=== PATIENT | female | born 1990 | race Caucasian/White ===

== ENCOUNTER 2024-02-06 14:32 | Outpatient (CLI) | payer BC, SELFPAY ==
[2024-02-06 15:23] LABS: Basophils Absolute Auto 0.1 K/mm3 (0.0-0.1); Basophils Percent Auto 0.6 % (0.2-1.2); Eosinophils Absolute Auto 0.1 K/mm3 (0-0.3); Eosinophils Percent Auto 0.8 % (0-4.4); Hematocrit 40.5 % (37.0-47.0); Immature Granulocyte Absolute 0.04 K/mm3 (0.00-0.031); Immature Granulocyte Percent A 0.4 % (0-0.5); Lymphocytes Absolute Auto 2.05 K/mm3 (0.9-3.2); Lymphocytes Percent Auto 21.7 % (18.3-44.2); Mean Corpuscular HGB Conc 32.1 g/dl (32-36); Mean Corpuscular Hemoglobin 28.2 pg (26-34); Mean Corpuscular Volume 87.9 fl (80-100); Mean Platelet Volume 9.7 fl (7.4-10.4); Monocytes Absolute Auto 0.7 K/mm3 (0.1-0.6); Monocytes Percent Auto 7.1 % (2.6-8.5); Neutrophils Absolute Auto 6.5 K/mm3 (1.3-6.7); Neutrophils Percent Auto 69.4 % (45.5-73.1); Platelet Count Result 283 k/mm3 (150-375); Red Blood Count 4.61 M/mm3 (4.2-5.4); Red Cell Distribution Width 12.8 % (11.5-14.5); White Blood Count 9.4 K/mm3 (4.5-10.0)
== END 2024-02-06 14:33 | disposition home or self-care (01) ==
PROVIDERS: PCP Family Medicine; Visit Provider Obstetrics & Gynecology
DX: N94.10 Unspecified dyspareunia (principal)
CPT/HCPCS: 36415; 85025; 86850; 86900; 86901

== ENCOUNTER 2024-02-10 00:24 | Day surgery (SDC) | payer BC, SELFPAY ==
[2024-02-03 15:36] VITALS: BMI 25.0
--- NOTE | 2024-02-03 15:43 | PC.NURSE ---
Report to the Outpatient Waiting Room, entrance under the green pavilion located off [facility], at time _0930_ on date _[id number]_. Planned Procedure Time: _1130_.? Time changes happen often and if your time is changed the preop area will call you the afternoon before. - You and your visitor will be asked to self-screen and do not enter if you have any COVID symptoms. Please call surgeon if you need to reschedule. - A mask is optional within the hospital at this time. Patients may have clear liquids (water, carbonated beverages, clear teas, apple juice) until 3 hours prior to surgery with a maximum of 20 ounces. - No food from midnight until time of surgery and no smoking Take only the following medications with a SIP of water on the morning of surgery: ___None DO NOT STOP ANY OF YOUR OTHER PRESCRIPTION MEDICATIONS PRIOR TO SURGERY EXCEPT THE FOLLOWING Medications to discontinue per physician None____ Please no make-up, nail austrian, hairspray, perfume, deodorant, or body powder the day of surgery.? No jewelry (including any body piercings) or valuables the day of surgery, leave them at home.? Please take a shower or bath the night before, or the morning of, surgery with an antibacterial soap.? Wear comfortable, loose fitting clothing.? - Jewelry must be removed prior to entering the operating room.? Rings and piercings that are not removed may be cut off. - The hospital will not accept responsibility for valuables.? - Please leave all valuables, including medications, at home the day of surgery. If you are going home after surgery, a licensed company driver must drive you home.? - NO public transportation without another adult if you receive anesthesia. - We recommend that an adult stay with you for 24 hours following discharge. - We also recommend that you do not drive, make important decision, drink alcoholic beverages, or take any drugs that were not prescribed by your health care provider for at least 24 hours after your discharge time. Follow any additional instructions given to you from your surgeon. Telephone instructions given to __Marci__and asked if any additional questions and then verbalized understanding. Patient advised to call surgeon office or pre surgery nurse liaison [phone] if any additional questions.
--- NOTE | 2024-02-08 16:23 | PM.IMHP ---
H&P: HPI History of Present Illness Date/Time: 02/08/24 16:23 Chief Complaint: Pelvic pain/uterine fibroids/dyspareunia Narrative: 33-year-old 2 para 2 admitted for robotic total vaginal hysterectomy and bilateral salpingectomy secondary to uterine fibroids/pelvic pain/dyspareunia. This has been refractory to medical therapy. Risks and benefits of the procedure reviewed including but not exclusive of , aspiration pneumonia, bleeding, transfusion, perforation injury to bowel, bladder, ureters, or other internal organs with need for open laparotomy. She received the [employer] handout entitled hysterectomy as well as the Richard handout. She had all questions answered to her satisfaction. She asked to proceed. [facility] Social History Social History Years smoked: 5 Smoking status: Former smoker Tobacco type: cigarettes Smoking end date: 02/02/18 Alcohol intake: current Drinks per week: 5 Living arrangements: with family Spiritual care concerns: No Meds Home Medications and Allergies Home Medications Medication Instructions Recorded Confirmed Type spironolactone 50 mg tablet 50 mg PO BID 02/03/24 02/03/24 History Allergies Allergy/AdvReac Type Severity Reaction Status Date / Time No Known Allergies Allergy Verified 02/03/24 15:34 Exam Const: General: cooperative, healthy appearing and comfortable Nutritional Appearance: overweight Orientation/consciousness: oriented to person, oriented to place and oriented to time HENMT: Head: normal to inspection Resp: Effort & Inspection: normal respiratory effort Cardio: Rate: regular rate Rhythm: regular rhythm Heart sounds: S1 normal heart sound present and S2 normal heart sound present GI: Inspection: normal to inspection : External Female Exam: normal external appearance Speculum Exam - Vagina: normal appearance of the vagina Speculum Exam - Cervix: normal appearance of the cervix Bimanual exam- vagina & uterus: enlarged and Uterine tenderness Bimanual Exam- Adnexa, other: normal adnexae Assessment and Plan Assessment and plan (1) Pelvic pain: Code(s): R10.2 - Pelvic and perineal pain Status: Acute (2) Uterine fibroid: Code(s): D25.9 - Leiomyoma of uterus, unspecified Status: Acute (3) Dyspareunia: Status: Acute Assessment and Plan: Robotic total vaginal hysterectomy and bilateral salpingectomy
[2024-02-10] VITALS (9 sets, daily range): BP systolic 92–109; BP diastolic 48–69; PULSE 53–88; RESP 13–18; TEMP 36.1–36.7; O2SAT 98–100
--- NOTE | 2024-02-10 06:32 | WPDHPUPDATE1 ---
History and Physical Update Update Date/Time: 02/10/24 06:32 History and Physical has been reviewed, including an updated exam of the patient. There are NO changes in the patient's condition. Risks, benefits, and alternatives have been discussed and questions answered. Patient agrees to proceed with procedure.
[2024-02-10] MEDS: ACETAMINOPHEN 500 MG TABLET 1000 MG PO (07:57)
[2024-02-10] MEDS: LACTATED RINGERS 1,000 ML 30 ML IV CONT ×2 (08:00→11:38)
[2024-02-10] MEDS: KETOROLAC 15 MG/ML VIAL (*BKC) IV PUSH (08:05)
--- NOTE | 2024-02-10 09:45 | WPDANESEPPF ---
Anes - Initial Pre Proc Eval Procedure: Operation Date: 02/10/24 09:30 Proposed Procedures p Robotic Assisted Total Vaginal Hysterectomy with Bilateral Salpingectomy - Darell Bear MD Date/Time: 02/10/24 09:45 Surgeon: Darell Bear MD Pre Op Diagnosis: Pelvic Pain, Dyspareunia Patient Data Age: 33 Gender: F Height: 1.68 m Weight: 70.7 kg Last Vital Signs Temp 97.6 F 02/10/24 07:41 Pulse 80 02/10/24 07:41 Resp 16 02/10/24 07:41 BP 104/48 L 02/10/24 07:41 Pulse Ox 100 02/10/24 07:41 O2 Del Method Room Air 02/10/24 07:41 Allergies Allergy/AdvReac Type Severity Reaction Status Date / Time No Known Allergies Allergy Verified 02/10/24 07:45 Home Medications Medication Instructions Recorded Confirmed Type spironolactone 50 mg tablet 50 mg PO BID 02/03/24 02/10/24 History hydrocodone 7.5 mg-acetaminophen 1 tablet PO Q4H PRN pain #30 tabs 02/10/24 Rx 300 mg tablet Patient hx anesthesia problems: none Family hx anesthesia problems: none Results Review: All pre-operative results and documents have been reviewed as part of the pre-operative evaluation. [facility] Social History Social History Years smoked: 5 Smoking status: Former smoker Tobacco type: cigarettes Smoking end date: 02/02/18 Alcohol intake: current Drinks per week: 5 Living arrangements: with family Spiritual care concerns: No Anes - Eval Final PreProcedure Day of Procedure 02/10/24 09:45 Patient weight: normal Heart: regular rate and rhythm Lungs: clear to auscultation Airway: Mallampati scale class II Neurological: alert and oriented Last oral intake: >/= 8 hours ASA classification: II Emergent: no Anesthetic plan: proceed Anesthesia type and monitoring: general ETT and standard monitoring Results Review: All pre-operative results and documents have been reviewed as part of the pre-operative evaluation. Informed Consent: The patient's anesthetic plan and its attendant risks and benefits were discussed with the patient/family/POA. Questions were solicited and answers provided to the satisfaction of the patient/family/POA.
[2024-02-10] MEDS: ceFAZolin 2 GM/D5W 50 ML 2 GM/50 ML BAG IVPB (10:27)
--- NOTE | 2024-02-10 11:23 | W.PM.PROC2 ---
Procedure Note - Detailed Date of Procedure 02/10/24 Pre-op Diagnosis Pelvic Pain, Dyspareunia Post-op Diagnosis Same Procedure Performed Total vaginal hysterectomy and bilateral salpingectomy Surgeon Darell Bear MD Anesthesia General Indications 33-year-old multiparous patient with severe pelvic pain dyspareunia Findings enlarged uterus. Normal-appearing tubes and ovaries Description of Procedure the patient was prepped draped in the sterile fashion placed in dorsal lithotomy position. Under excellent endotracheal anesthesia weighted speculum placed posterior fornix vagina. Anterior lip of the cervix grasped with a single-tooth tenaculum. The the uterus sounded to 10cm. Serial dilatation with fragmented dilators performed followed by passage of the 8. KAMRON and the 3. 3 cold cup. The single-tooth tenaculum was removed. The the weighted speculum was removed and a 16 Montserratian catheter was placed bladder drained of clear urine. The gloves were changed . A supraumbilical incision made Veress needle passed in the abdomen. Abdomen filled with CO2 gas [id number]. The 8mm trocar advanced in the abdomen. Downside visualized no injury seen. Patient placed in Trendelenburg right left lateral quadrant incisions made. 8mm trocars advanced under direct visualization assuring no injury. Right upper quadrant incision made the 8mm trocar advanced under direct visualization assuring no injury. The robot was docked. Attention was turned to the beauty counselor. The left round ligament grasped, burned, cut. Anteriorly a bladder flap was formed by sharply dissecting the peritoneum reflecting this caudally away from the cervix uterus the opposite round ligament which was clamped, burned, cut. Next the left fallopian tube was sharply dissected away from the ovarian complex and left attached to its uterine origin. In similar fashion on the right the fallopian tube on the right was sharply dissected away from the ovarian complex and left attached at its uterine origin. The left utero-ovarian ligament was skeletonized to conserve the left ovary clamped burned cut brought to level of previously cut round ligament. In similar fashion on the right conserving the right ovary, the utero-ovarian ligament was clamped, burned, cut brought to level of previously cut round ligament. The cardinal broad ligaments on the left was curious skeletonized clamping burning cutting hugging the cervix uterus and to the large tortuous vessels could be seen left these were individually clamped, burned,. Some fashion on the right the cardinal broad ligaments were serially skeletonized clamping burning cutting and ligating dioxide level with vessels on the right. These were individually clamped,, cut blanching the uterus was noted a colpotomy incision was made. The cervix uterus and tubes removed through the vagina. The vagina then closed with continuous running 0V lock from lateral edge to lateral edge back to the midline. Irrigation undertaken until clear and hemostasis was assured. The robot was undocked. The trocars removed from the abdomen after gas removed from the abdomen. The incisions closed with 4 Monocryl and glue. Patient was awakened and went to recovery in satisfactory condition. All sponge, needle, instrument counts were correct. There were no immediate complications noted Estimated Blood Loss 25 Drains No Packing No Pathology Yes Complications No immediate complications Condition Stable Disposition PACU
--- NOTE | 2024-02-10 11:27 | PM.DS ---
DS: Admitting Diagnosis Discharge Date 02/11/2024 Admitting Diagnosis pelvic pain and enlarged uterus DS: Discharge Diagnosis Discharge Diagnosis (1) Dyspareunia: Status: Acute (2) Uterine fibroid: Code(s): D25.9 - Leiomyoma of uterus, unspecified Status: Acute (3) Pelvic pain: Code(s): R10.2 - Pelvic and perineal pain Status: Acute DS: Summary Hospital Course Reason for hospitalization: the patient was admitted for total vaginal hysterectomy and bilateral salpingectomy via robot on 02 10 24. Hospital Course: Patient's hospital course a workable. She remained afebrile. She was up, voiding without difficulty, ambulating eating regular diet, and generally without complaints. Time Spent with Patient Time attestation: Total time spent providing and/or coordinating discharge services: Exam Const: General: cooperative, healthy appearing, comfortable and average body habitus Orientation/consciousness: oriented to person, oriented to place and oriented to time HENMT: Head: normal to inspection Resp: Effort & Inspection: normal respiratory effort Cardio: Rate: regular rate Rhythm: regular rhythm Heart sounds: S1 normal heart sound present and S2 normal heart sound present GI: Inspection: normal to inspection and incision ( Wounds are clean dry and intact) DS: Data Data Completed and Pending Pending studies at discharge: Pending at discharge 02/10/24 11:09 Surgical [PTH] Routine Discharge Plan Discharge Patient Disposition: Home, Self-Care Discharge Instructions: Some Complications to Watch for: ? Excessive incisional or vaginal drainage (more than one pad an hour). Additional Instructions: ? Expect some vaginal spotting for 2-4 days. ? Nothing vaginally (i.e. douching, intercourse, tampons) until follow up visit. Patient Instructions: Salpingectomy (DC), Laparoscopic Hysterectomy (DC) Follow-up/Referrals: Darell Polanco MD [Physician] - Discharge Medications: New hydrocodone-acetaminophen 5-325 mg tablet 1 tablet PO Q4H PRN (Reason: pain) Qty: 20 0RF No Action spironolactone 50 mg Tablet 50 mg PO BID Rx Instructions: Takes for acne.
[2024-02-10] MEDS: fentaNYL CITRATE INJ (*CRX) 100 MCG/2 ML VIAL 25 MCG IV PUSH ×2 (12:05→12:10)
[2024-02-10] MEDS: SIMETHICONE 80 MG TAB.CHEW PO (13:16)
[2024-02-10] MEDS: DEXTROSE 5%/LACTATED RINGERS 1,000 ML 125 ML IV CONT (13:17)
[2024-02-10] MEDS: KETOROLAC 30 MG/ML VIAL (*BKC) IV PUSH ×2 (14:07→21:20)
[2024-02-10] MEDS: HYDROcodone/acetaminophen (*CRX) 5-325 MG TABLET 1 TAB PO ×2 (14:08→21:20)
--- NOTE | 2024-02-10 17:52 | PC.NURSE ---
Jose Bear called in for update, update given on pain and urine output. No new orders received
[2024-02-11 01:42] VITALS: BP 84/50; PULSE 79; RESP 16; TEMP 36.9; O2SAT 99
[2024-02-11 04:19] LABS: Basophils Percent Auto 0.2 % (0.2-1.2); Hematocrit 33.9 % (37.0-47.0); Hemoglobin 11.4 g/dL (12.0-15.0); Immature Granulocyte Absolute 0.02 K/mm3 (0.00-0.031); Immature Granulocyte Percent A 0.2 % (0-0.5); Lymphocytes Absolute Auto 0.96 K/mm3 (0.9-3.2); Lymphocytes Percent Auto 8.8 % (18.3-44.2); Mean Corpuscular HGB Conc 33.6 g/dl (32-36); Mean Corpuscular Hemoglobin 28.7 pg (26-34); Mean Corpuscular Volume 85.4 fl (80-100); Mean Platelet Volume 10.6 fl (7.4-10.4); Monocytes Absolute Auto 0.9 K/mm3 (0.1-0.6); Monocytes Percent Auto 7.9 % (2.6-8.5); Neutrophils Percent Auto 82.9 % (45.5-73.1); Platelet Count Result 196 k/mm3 (150-375); Red Blood Count 3.97 M/mm3 (4.2-5.4); Red Cell Distribution Width 12.4 % (11.5-14.5); White Blood Count 10.9 K/mm3 (4.5-10.0)
[2024-02-11] MEDS: HYDROcodone/acetaminophen (*CRX) 5-325 MG TABLET 1 TAB PO ×2 (04:42→09:20)
[2024-02-11] MEDS: KETOROLAC 30 MG/ML VIAL (*BKC) IV PUSH (04:42)
[2024-02-11 05:02] VITALS: BP 94/52; PULSE 69; RESP 14; TEMP 36.8; O2SAT 98
--- NOTE | 2024-02-11 09:00 | P.PNAN_ITS ---
Anes - Prog Note Post-Op Date/Time: 02/11/24 09:00 Cardiovascular status: normal Respiratory status: normal Airway patency: baseline Mental status: baseline Post-Op hydration status: normal Vital Signs: Last Vital Signs Temp 36.8 C 02/11/24 05:02 Pulse 69 02/11/24 05:02 Resp 14 02/11/24 05:02 BP 94/52 L 02/11/24 05:02 Pulse Ox 98 02/11/24 05:02 O2 Del Method Room Air 02/11/24 01:42 O2 Flow Rate 10 02/10/24 11:53 Pain Score (VAS): 07/23 I/O: Intake & Output 02/10/24 02/11/24 02/11/24 23:59 07:59 15:59 Intake Total 550 875 Output Total 150 1875 Balance 400 -1000 Laboratory Tests 02/11/24 03:33 02/11/24 03:33 WBC 10.9 H RBC 3.97 L Hgb 11.4 L Hct 33.9 L MCV 85.4 MCH 28.7 MCHC 33.6 RDW 12.4 Plt Count 196 MPV 10.6 H Immature Gran % (Auto) 0.2 Neut % (Auto) 82.9 H Lymph % (Auto) 8.8 L [place] % (Auto) 7.9 Eos % (Auto) 0.0 Baso % (Auto) 0.2 Lymph # (Auto) 0.96 [place] # (Auto) 0.9 H Eos # (Auto) 0.0 Baso # (Auto) 0.0 Abs Immat Gran (auto) 0.02 Absolute Neuts (auto) 9.0 H Absolute Nucleated RBC 0.000 Nucleated RBC % 0.0 Post-procedural complaints: none Patient Feedback: Patient satisfied with anesthetic care.
[2024-02-11] MEDS: DOCUSATE SODIUM 100 MG CAPSULE PO (09:19)
[2024-02-11] MEDS: SIMETHICONE 80 MG TAB.CHEW PO (09:19)
[2024-02-11 09:20] VITALS: BP 103/65; PULSE 74; RESP 18; TEMP 36.6; O2SAT 100
[2024-02-11] MEDS: ENOXAPARIN 40 MG/0.4 ML SYRINGE SUB-Q (09:21)
--- NOTE | 2024-02-11 10:13 | PM.GYNPNOP ---
DESIGN CENTER CONSULTANT - A/P Postoperative Procedures: Procedures Operation Date: 02/10/24 09:30 Actual Procedure Side Surgeon p Robotic Assisted Total Vaginal Hysterectomy with Bilateral Salpingectomy Bilateral Darell Bear MD Postoperative day: 1 Postoperative status: doing well Postoperative plan: routine post-op care and discharge Time Spent With Patient Time: Total time spent is greater than 50% in coordination of care (as documented) at patient's floor/unit and/or counseling patient: Time with patient: less than 15 minutes DESIGN CENTER CONSULTANT- PN:Subj Post-Op Subjective Date/time seen: 02/11/24 10:13 Subjective: patient has no complaints, pain is well controlled and patient is tolerating oral intake Exam Narrative: inc c/d/i abdomen soft, nt, nd DESIGN CENTER CONSULTANT - PN: Obj Data Vital Signs Vital Signs: Vital Signs - 24 hr 02/10/24 11:38 02/10/24 11:53 02/10/24 12:08 Temperature 97.2 F L Pulse Rate 88 53 L 60 Respiratory Rate 16 14 15 Blood Pressure 109/67 108/62 101/69 Pulse Oximetry 100 100 98 Oxygen Delivery Simple Face Mask Simple Face Mask Room Air Oxygen Flow Rate 10 10 02/10/24 12:23 02/10/24 12:40 02/10/24 12:55 Temperature 97.0 F L Pulse Rate 58 L 59 L Respiratory Rate 13 14 Blood Pressure 100/69 99/54 L Pulse Oximetry 98 98 Oxygen Delivery Room Air Room Air Room Air Oxygen Flow Rate 02/10/24 13:15 02/10/24 16:40 02/10/24 16:40 Temperature 97.2 F L 97.9 F Pulse Rate 61 71 Respiratory Rate 16 16 Blood Pressure 102/68 95/58 L Pulse Oximetry 98 100 Oxygen Delivery Room Air Oxygen Flow Rate 02/10/24 20:40 02/11/24 01:42 02/11/24 01:42 Temperature 98.1 F 98.4 F Pulse Rate 69 79 79 Respiratory Rate 18 16 16 Blood Pressure 92/52 L 84/50 L Pulse Oximetry 100 99 99 Oxygen Delivery Room Air Oxygen Flow Rate 02/11/24 05:02 Temperature 98.3 F Pulse Rate 69 Respiratory Rate 14 Blood Pressure 94/52 L Pulse Oximetry 98 Oxygen Delivery Oxygen Flow Rate Intake/Output Intake/Output: Intake & Output 02/08/24 02/09/24 02/10/24 02/11/24 23:59 23:59 23:59 23:59 Intake Total 900 875 Output Total 300 1875 Balance 600 -1000 Meds/Results Medications: Active Medications Generic Name Dose Route Start Last Admin Trade Name Freq PRN Reason Stop Dose Admin Hydrocodone Bitart/Acetaminophen 1 tab 02/10/24 12:46 02/11/24 09:20 Hydrocodone/Acetaminophen (*Crx) 5-325 Mg Tablet PO 1 tab Q3H PRN Administration Pain Rated 5 or Less Hydrocodone Bitart/Acetaminophen 1 tab 02/10/24 12:46 Hydrocodone/Acetaminophen (*Crx) 10-325 Mg Tablet PO Q3H PRN Pain Rated 6 or Greater Docusate Sodium 100 mg 02/10/24 17:00 02/11/24 09:19 Docusate Sodium 100 Mg Capsule PO 100 mg BID MARIA ESTHER Administration Enoxaparin Sodium 40 mg 02/11/24 09:00 02/11/24 09:21 Enoxaparin 40 Mg/0.4 Ml Syringe SUB-Q 40 mg DAILY MARIA ESTHER Administration Dextrose/Lactated Ringer's 1,000 mls @ 125 mls/hr 02/10/24 12:46 02/10/24 13:17 Dextrose 5%/Lactated Ringers IV CONT 125 mls/hr .Q8H MARIA ESTHER Administration Ibuprofen 600 mg 02/10/24 12:46 Ibuprofen 600 Mg Tablet PO Q6H PRN Cramping Ketorolac Tromethamine 30 mg 02/10/24 12:46 02/11/24 04:42 Ketorolac 30 Mg/Ml Vial (*Bkc) IV PUSH 02/15/24 12:45 30 mg Q6H PRN Administration Pain Rated 4-6 Naloxone HCl 0.1 mg 02/10/24 12:46 Naloxone Hcl 0.4 Mg/Ml Vial IV PUSH Q2M PRN Respiratory rate less than 10 Ondansetron HCl 4 mg 02/10/24 12:46 Ondansetron Inj 4 Mg/2 Ml Vial IV PUSH Q6H PRN Nausea And Vomiting Simethicone 80 mg 02/10/24 12:46 02/11/24 09:19 Simethicone 80 Mg Tab.Chew PO 80 mg TIDWM MARIA ESTHER Administration Labs 02/11/24 03:33 Labs: Laboratory Results - last 24 hr 02/11/24 03:33 WBC 10.9 H RBC 3.97 L Hgb 11.4 L Hct 33.9 L MCV 85.4 MCH 28.7 MCHC 33.6 RDW 12.4 Plt Count 196 MPV 10.6 H Imm
[2024-02-13 14:24] LABS: BEDSIDEPREGUCG Negative (Negative)
== END 2024-02-11 12:15 | disposition home or self-care (01) ==
LOC: ANHSURGERY 07:28 → ANHOB2 12:48
PROVIDERS: PCP Family Medicine; Visit Provider Obstetrics & Gynecology
PROC: (CPT 58552; principal; 2024-02-10 09:30)
DX: D25.9 Leiomyoma of uterus, unspecified (principal); R10.2 Pelvic and perineal pain; N88.8 Other specified noninflammatory disorders of cervix uteri; N80.03 Adenomyosis of the uterus
CPT/HCPCS: 58552; S2900; 36415; 85025; 88307; 99199; A9270; J0690; J1100; J1170; J1650; J1885; J2250; J2405; J2704; J3010; J7030; J7120; J7121